=== PATIENT | male | born 1980 | race Two or more races ===

== ENCOUNTER 2017-09-22 23:39 | Emergency (ER) | payer SELFPAY ==
--- NOTE | 2017-09-23 01:11 | ED PDOC ---
HPI: Psych/Substance Abuse Time Seen by Provider: 09/23/17 00:08 Chief Complaint (Nursing): Alcohol Ingestion Chief Complaint (Provider): Alcohol Intoxication ED Caveat: Acuity of Condition, Intoxicated History Per: EMS History/Exam Limitations: intoxication, language barrier Onset/Duration Of Symptoms: Hrs (three) Current Symptoms Are (Timing): Still Present Suicide/Self Injury Attempted (Context): None (Pt presents to the ED via EMS for public intoxication; ) Past Medical History Reviewed: Historical Data, Nursing Documentation, Vital Signs Vital Signs: Last Vital Signs Temp 98.0 F 09/22/17 23:40 Pulse 88 09/22/17 23:40 Resp 18 09/22/17 23:40 BP 131/103 H 09/22/17 23:40 Pulse Ox 99 09/22/17 23:40 - Family History Family History: States: Unknown Family Hx - Allergies Allergies/Adverse Reactions: Allergies Allergy/AdvReac Type Severity Reaction Status Date / Time No Known Allergies Allergy Verified 09/22/17 23:40 Review of Systems ROS Statement: Except As Marked, All Systems Reviewed And Found Negative Review Of Systems: ROS cannot be obtained secondary to pt's inabilty to answer questions. Psych: Positive for: Other (intoxicated) Physical Exam - Reviewed Nursing Documentation Reviewed: Yes Vital Signs Reviewed: Yes - Physical Exam Appears: Positive for: Uncomfortable Head Exam: Positive for: ATRAUMATIC, NORMAL INSPECTION, NORMOCEPHALIC Skin: Positive for: Normal Color, Warm, Dry Cardiovascular/Chest: Positive for: Regular Rate, Rhythm Respiratory: Positive for: Normal Breath Sounds Pulses-Carotid (L): 2+ Pulses-Carotid (R): 2+ Pulses-Radial (L): 2+ Pulses-Radial (R): 2+ - ECG O2 Sat by Pulse Oximetry: 99 Medical Decision Making Medical Decision Making: Pt discharged [facility] friend who arrived at ED to pick pt up and take home; Pt gait is strong, straight and able prior to discharge Disposition - Clinical Impression Clinical Impression: Alcohol abuse, Alcohol abuse with intoxication - Patient ED Disposition Is Patient to be Admitted: No Doctor Will See Patient In The: Office - Disposition Referrals: Alcoholics Anonymous [Outside] Disposition Time: 01:13 Condition: STABLE Instructions: Alcohol Abuse and Alcoholism (DC), Effects of Alcohol on Your Health Forms: Sonics (Arabic), Sonics (Italian)
[2017-09-23 02:15] VITALS: BP 132/84; PULSE 84; RESP 16; TEMP 97.9; O2SAT 100
== END 2017-09-23 01:10 | disposition home or self-care (01) ==
LOC: H.ER 23:39
DX: F10.129 Alcohol abuse with intoxication, unspecified (principal)